=== PATIENT | male | born 1955 | race Caucasian/White ===

== ENCOUNTER → 2016-10-27 | Outpatient (CLI) | payer BC, OTHER ==
[2016-10-27 13:08] LABS: BASOPHILS % (AUTO) 0.5 %; EOSINOPHILS # (AUTO) 0.1 10^3/uL (0.0-0.7); EOSINOPHILS % (AUTO) 1.1 %; HCT - HEMATOCRIT 43.7 % (42.0-52.0); HGB - HEMOGLOBIN 14.8 g/dL (14.0-18.0); LYMPHOCYTES # (AUTO) 1.9 10^3/uL (1.5-3.5); LYMPHOCYTES % (AUTO) 28.7 %; MEAN CORPUSCULAR VOLUME 91.2 fL (80.0-94.0); MEAN PLATELET VOLUME 9.5 fL (7.4-11.4); MONOCYTES # (AUTO) 0.6 10^3/uL (0.0-1.0); MONOCYTES % (AUTO) 9.5 %; NEUTROPHILS # (AUTO) 3.9 10^3/uL (1.5-6.6); NEUTROPHILS % (AUTO) 60.2 %; NUCLEATED RED BLOOD CELLS AUTO 0.1 /100WBC; RED BLOOD COUNT 4.79 10^6/uL (4.70-6.10); RED CELL DISTRIBUTION WIDTH 13.5 % (12.0-15.0); UNCORRECTED WHITE BLOOD COUNT 6.5 x10^3/uL; WHITE BLOOD COUNT 6.5 x10^3/uL (4.8-10.8)
[2016-10-27 13:21] LABS: ALBUMIN/GLOBULIN RATIO 1.4 (1.0-2.2); BILIRUBIN,TOTAL 1.1 mg/dL (0.2-1.0); BUN - BLOOD UREA NITROGEN 19 mg/dL (6-20); CALCIUM 9.3 mg/dL (8.5-10.3); CARBON DIOXIDE - CO2 30 mmol/L (21-32); CHLORIDE 100 mmol/L (101-111); CHOL/HDL RATIO 3.6 (<5.0); CHOLESTEROL 222 mg/dL; GFR - MDRD 76 (>89); GLUCOSE 91 mg/dL (70-100); HDL CHOLESTEROL 62 mg/dL; LDL/HDL RATIO 2.3 (<3.6); SODIUM 138 mmol/L (135-145); TOTAL PROTEIN 7.1 g/dL (6.7-8.2); TRIGLYCERIDES 97 mg/dL; VLDL CHOLESTEROL 19 mg/dL
== END ==
LOC: LAB.WCP 08:00
PROVIDERS: ATTEND Family Medicine
DX: I10 Essential (primary) hypertension (principal)
CPT/HCPCS: 36415; 80053; 80061; 84153; 84443; 85025

== ENCOUNTER 2016-11-13 08:14 | Outpatient (CLI) | payer BC ==
--- NOTE | 2016-11-14 07:48 | Ultrasound Report ---
EXAM: AORTIC DOPPLER ULTRASOUND EXAM DATE: 11/13/2016 09:10 AM. CLINICAL HISTORY: Cerebrovascular disease, aneurysm, neck artery. COMPARISON: 06/13/2013. TECHNIQUE: Real-time sonographic imaging of retroperitoneal vascular structures, including color-flow , Doppler flow and spectral analysis was performed by the dough catcher. Multiple entry level account representative static images were saved for review. FINDINGS: Aorta: The abdominal aorta was adequately visualized. No evidence for abdominal aortic aneurysm. Aorta: Proximal: Sagittal plan AP measurement: 2.3 x 2.4 cm. Mid: Transverse plane measurements: 1.7 x 1.7 cm. Distal: Transverse plane measurements: 1.7 x 1.7 cm. Right Iliac: 1.1 x 1.1 cm. Left Iliac: 1.0 x 1.1 cm. Doppler: Proximal aorta PSV: 73 cm/sec Mid aorta PSV: 100 cm/sec Distal aorta PSV: 105 cm/sec Proximal RCIA PSV: 144 cm/s, triphasic Proximal LCIA PSV: 142 cm/s, triphasic Iliac Vessels: The visualized proximal common iliac arteries are normal in caliber. Other: None. IMPRESSION: Normal. No abdominal aortic aneurysm. [facility] Referring Provider Line: [phone] SITE ID: [id number]
--- NOTE | 2016-11-14 12:54 | Ultrasound Report ---
EXAM: CAROTID DOPPLER ULTRASOUND EXAM DATE: 11/13/2016 09:11 AM. CLINICAL HISTORY: Cerebrovascular disease, aneurysm, neck artery. COMPARISON: 05/08/2013. TECHNIQUE: Real-time sonographic vascular imaging was performed by the auto garage attendant through the caroti d arterial system with a linear transducer utilizing color-flow, Doppler flow and spectral analysis. Multiple vaccine customer representative static images were saved for review. FINDINGS: Calcified and noncalcified plaques are present in the right carotid bulb, distal common car otid artery and extending into the internal and external carotid artery. No hemodynamically significa nt stenoses are seen in the right carotid system. Color, grayscale and power imaging are consistent with a critical stenosis in the proximal right inte rnal carotid artery as evidenced by a string sign. The velocity measurements are unreliable. Vertebral arteries are antegrade in flow. Spectral waveform analysis is as follows: Right: RCCA Prox: PSV 90 cm/sec. RCCA Dist: PSV 61 cm/sec, EDV 20 cm/sec. RECA: PSV 91 cm/sec. R Bulb: PSV 53 cm/sec, EDV 20 cm/sec, ICA/CCA ratio 0.87, degree of stenosis less than 50%, plaque es timate less than 50%. JORGITO Prox: PSV 73 cm/sec, EDV 35 cm/sec, ICA/CCA ratio 1.2, degree of stenosis less than 50 %, plaque estimate less than 50 %. [place] Mid: PSV 80 cm/sec, EDV 43 cm/sec, ICA/CCA ratio 1.31, degree of stenosis less than 50%, plaque estimate less than 50%. [place] Dist: PSV 77 cm/sec, EDV 35 cm/sec, ICA/CCA ratio 1.26, degree of stenosis less than 50%, plaque estimate less than 50%. RVA: PSV 60 cm/sec. RVA flow direction: Antegrade. Left: LCCA Prox: PSV 65 cm/sec. LCCA Dist: PSV 49 cm/sec, EDV 8 cm/sec. LECA: PSV 76 cm/sec. L Bulb: PSV 41 cm/sec, EDV 7 cm/sec, ICA/CCA ratio 0.84. LICA Prox: PSV 21 cm/sec, EDV 9 cm/sec, ICA/CCA ratio 0.43. LICA Mid: PSV 28 cm/sec, EDV 7 cm/sec, ICA/CCA ratio 0.57. LICA Dist: PSV 28 cm/sec, EDV 9 cm/sec, ICA/CCA ratio 0.57. LVA: PSV 69 cm/sec. LVA flow direction: Antegrade. Other: None. IMPRESSION: 1. Right carotid system: No hemodynamically significant stenoses. 2. Left carotid system: Stable near complete stenosis in the proximal left internal carotid artery. P ositive string sign. 3. Both vertebral arteries are antegrade in flow. Validated velocity measurements with angiographic measurements and velocity criteria are extrapolated from diameter data as defined by the Society of Radiologists in Ultrasound Consensus Conference Radi ology 2003; 229;340-346. [facility] Referring Provider Line: [phone] SITE ID: [id number]
== END 2016-11-13 08:15 | disposition home or self-care (01) ==
LOC: DI 08:14
PROVIDERS: ATTEND Family Medicine
DX: I65.22 Occlusion and stenosis of left carotid artery (principal)
CPT/HCPCS: 76706; 93880

== ENCOUNTER 2017-08-18 11:12 | Day surgery (SDC) | payer BC ==
[2017-08-18] MEDS ORDERED: LACTATED RINGERS 1,000 ML IV ONE (11:23)
[2017-08-18] MEDS ORDERED: PROPOFOL 200 MG/20 ML VIAL IVP ONE (14:30)
[2017-08-18] MEDS ORDERED: LIDOCAINE-MPF 2% 5 ML VIAL IM ONE (14:30)
[2017-08-18 15:01] VITALS: BP 142/79
== END 2017-08-18 11:13 | disposition home or self-care (01) ==
LOC: SDS 11:12
PROVIDERS: ATTEND Internal Medicine Gastroenterology
PROC: 0DBL8ZX Excision of Transverse Colon, Via Natural or Artificial Opening Endoscopic, Diagnostic (ICD-10-PCS; principal; 2017-08-18 12:15)
DX: Z12.11 Encounter for screening for malignant neoplasm of colon (principal); K57.30 Diverticulosis of large intestine without perforation or abscess without bleeding; K63.5 Polyp of colon; K64.8 Other hemorrhoids; Z87.891 Personal history of nicotine dependence; Z79.82 Long term (current) use of aspirin
CPT/HCPCS: 45380; J7120